=== PATIENT | female | born 1930 | race Caucasian/White ===

== ENCOUNTER 2019-07-21 14:23 | Emergency (ER) | payer MEDICARE, MEDICAID ==
[2019-07-21 14:34] VITALS: BP 165/70; PULSE 71
[2019-07-21] MEDS ORDERED: Acetaminophen 325 MG Tab PO ONE (15:03)
[2019-07-21] MEDS ORDERED: Lidocaine 1% with EPINEPHrine 1:100,000 50 ML MDV SUBCUT STA (15:03)
[2019-07-21] MEDS ORDERED: Bacitracin Oint 1 GM U/D Packet TOP ONE (15:03)
--- NOTE | 2019-07-21 15:06 | EDM.PDOC ---
ED HPI GENERAL MEDICAL PROBLEM - General Chief Complaint: Laceration Stated Complaint: MEDICAL [facility] Time Seen by Provider: 07/21/19 15:00 Source of Information: Reports: Patient, RN Notes Reviewed History Limitations: Reports: No Limitations - History of Present Illness INITIAL COMMENTS - FREE TEXT/NARRATIVE: 88-year-old female presents emergency department today complaint of head injury , unfortunately she fell at the detention and injured herself she does not recall the details of the event but she does have a laceration on the back of her scalp. She does have significant dementia difficult to obtain any history Left Posterior Head Pain Score (Numeric/FACES): 5 - Related Data Allergies Allergy/AdvReac Type Severity Reaction Status Date / Time No Known Allergies Allergy Verified 07/21/19 14:35 Home Meds: Home Meds Aspirin [Liza Chewable Aspirin] 81 mg PO DAILY 02/19/14 [History] Donepezil HCl [Aricept] 10 mg PO BEDTIME 02/19/14 [History] Cholecalciferol (Vitamin D3) [Vitamin D3] 2,000 units PO BID 04/25/14 [History] Polyethylene Glycol 3350 [MiraLAX] 17 gm PO DAILY PRN 04/25/14 [History] Metoprolol Tartrate [Lopressor] 25 mg PO BID 09/08/14 [History] Acetaminophen [Tylenol Extra Strength] 1,000 mg PO Q8H PRN 10/15/14 [History] Famotidine [Pepcid] 20 mg PO BEDTIME 10/15/14 [History] Nitroglycerin [Nitrostat] 0.4 mg SL ASDIRECTED PRN 10/15/14 [History] Sennosides/Docusate Sodium [Senna-S Tablet] 1 each PO BID 01/16/16 [History] Hydrocodone/Acetaminophen [Hydrocodon-Acetaminophen 5-325] 1 tab PO Q4H PRN #40 tablet 01/17/16 [Rx] Gabapentin [Neurontin] 400 mg PO BID 07/21/19 [History] risperiDONE 0.25 mg PO BID 07/21/19 [History] traZODone 25 mg PO BEDTIME 07/21/19 [History] Past Medical History HEENT History: Reports: Impaired Vision Cardiovascular History: Reports: Hypertension COMPUTER TECH History: Reports: Musculoskeletal History: Reports: Fracture Neurological History: Reports: Other (See Below) Other Neuro History: dementia Psychiatric History: Reports: Dementia - Infectious Disease History Infectious Disease History: Reports: Chicken Pox, Measles, Mumps - Past Surgical History GI Surgical History: Reports: Appendectomy Musculoskeletal Surgical History: Reports: Hip Replacement Social & Family History - Tobacco Use Smoking Status *Q: Never Smoker - Caffeine Use Caffeine Use: Reports: Coffee - Recreational Drug Use Recreational Drug Use: No - Living Situation & Occupation Living situation: Reports: Occupation: Disabled ED ROS GENERAL - Review of Systems Review Of Systems: Unable To Obtain Reason Not Obtained: Dementia ED EXAM, SKIN/RASH Exam: See Below Exam Limited By: Physical Impairment General Appearance: Alert, No Apparent Distress Eye Exam: Bilateral Eye: EOMI, Normal Inspection, PERRL Ears: Normal External Exam, Normal Canal, Hearing Grossly Normal, Normal TMs Nose: Normal Inspection, Normal Mucosa, No Blood Head: Normocephalic, Other (Laceration approximately 3 cm in length left side of the posterior scalp) Neck: Normal Inspection, Supple, Non-Tender, Full Range of Motion Respiratory/Chest: No Respiratory Distress ED SKIN PROCEDURES - Laceration/Wound Repair Head Appearance: Subcutaneous Distal NVT: Neuro & Vascular Intact, No Tendon Injury Anesthetic Type: Local Local Anesthesia - Lidocaine (Xylocaine): 1% with EPI Local Anesthetic Volume: 2cc Skin Prep: Saline Saline Irrigation (cc's): 60 Exploration/Debridement/Repair: Wound Explored, In a Bloodless Field, Explored to Base Closed with: Evelia Lac/Wound length In cm: 3 # of Sutures: 5 Sterile Dressing Applied: Nurse Tetanus Status Addressed: Yes (today) Complications: No Course - Vital Signs Last Recorded V/S: Last Vital Signs Temp 96.6 F 07/21/19 14:33 Pulse 71 07/21/19 14:33 Resp 16 07/21/19 14:33 BP 165/70 H 07/21/19 14:33 Pulse Ox 97 07/21/19 14:33 - Orders/Labs/Meds Orders: Active Orders 24 hr Category Date Time Status Vaccines to be Administered [RC] PER UNIT ROUTINE Care 07/21/19 16:15 Active Meds: Medications Discontinued Medications Generic Name Dose Route Start Last Admin Trade Name Freq PRN Reason Stop Dose Admin Acetaminophen 650 mg 07/21/19 15:03 07/21/19 15:40 Tylenol PO 07/21/19 15:04 650 mg NOW ONE Administration Bacitracin 1 dose 07/21/19 15:03 07/21/19 15:40 Bacitracin Oint 1 Gm TOP 07/21/19 15:04 1 dose ONETIME ONE Administration Diphtheria/Tetanus/Acell Pertussis 0.5 ml 07/21/19 16:15 Adacel IM 07/21/19 16:16 .ONCE ONE Lidocaine/Epinephrine 20 ml 07/21/19 15:03 07/21/19 15:41 Xylocaine 1% With Epinephrine 1:100,000 SUBCUT 07/21/19 15:04 20 ml NOW STA Administration Departure - Departure Time of Disposition: 16:22 Disposition: Home, Self-Care 01 Condition: Fair Clinical Impression: Scalp laceration Qualifiers: Encounter type: initial encounter Qualified Code(s): S01.01XA - Laceration without foreign body of scalp, initial encounter - Discharge Information Instructions: Stitches, [place], or Adhesive Wound Closure, [id number], Wound Infection, [id number] Referrals: PCP,None [Primary Care Provider] - Forms: ED Department Discharge Additional Instructions: staple removal in 10 days, follow-up primary care or return turned to the emergency department for staple removal, follow wound care instruction sheet - My Orders Last 24 Hours: My Active Orders 07/21/19 16:15 Vaccines to be Administered [RC] PER UNIT ROUTINE - Assessment/Plan Last 24 Hours: My Active Orders 07/21/19 16:15 Vaccines to be Administered [RC] PER UNIT ROUTINE Plan: Assessment Acuity = acute Site and laterality = 3 cm laceration scalp left side Etiology = secondary to a fall Manifestations = none Location of injury = Home Lab values = CT scan of the head negative Plan Staple removal in 10 days, follow-up with primary care return to ED for staple removal This note was dictated using [employer] voice recognition software please call with any questions on syntax or grammar.
--- NOTE | 2019-07-21 15:57 | CRLCT ---
INDICATION: Trauma TECHNIQUE: CT head without contrast. COMPARISON: None available FINDINGS: There is age-related cortical atrophy with mild proportionate ventriculomegaly. There is no mass effect or midline shift. White matter hypodensities are suggestive of chronic small vessel ischemic changes. 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 Small chronic and age-indeterminate right thalamic, ganglionic and capsular lacunar infarcts are noted. There is no loss of brooks-white differentiation. There is a small peripheral calcification in the left occipital lobe on image 17. Tiny adjacent ill-defined increased attenuation could be related to additional subtle calcification or artifact. There is otherwise no evidence of gross acute intracranial hemorrhage. No acute calvarial fracture is seen. There is mild soft tissue swelling and a laceration in the left occipital scalp. The visualized paranasal sinuses are clear. There is opacification of few right mastoid tip air cells. Post cataract surgery changes are seen. IMPRESSION: No evidence of a gross acute intracranial hemorrhage, mass effect or loss of brooks-white differentiation. Age-related atrophy and chronic ischemic changes. Dictated by Royer Goss MD @ 07/21/2019 3:55:26 PM Please note that all CT scans at this facility use dose modulation, iterative reconstruction, and/or weight-based dosing when appropriate to reduce radiation dose to as low as reasonably achievable. Dictated by: Royer Goss MD @ 07/21/2019 15:55:41 (Electronically Signed)
[2019-07-21] MEDS ORDERED: Diphtheria,Pertussis(Acell),Tetanus Vaccine 0.5 ML SDV IM ONE (16:15)
== END 2019-07-21 16:35 | disposition home or self-care (01) ==
LOC: JP.ED 14:23
DX: S01.01XA Laceration without foreign body of scalp, initial encounter (principal); F03.90 Unspecified dementia, unspecified severity, without behavioral disturbance, psychotic disturbance, mood disturbance, and anxiety; I10 Essential (primary) hypertension; Z23 Encounter for immunization; Z79.899 Other long term (current) drug therapy; Z79.82 Long term (current) use of aspirin; W19.XXXA Unspecified fall, initial encounter; Y92.129 Unspecified place in nursing home as the place of occurrence of the external cause
CPT/HCPCS: 12002; 70450; 90471; 90715; 99283; A9270